=== PATIENT | female | born 1950 | race Caucasian/White ===

== ENCOUNTER 2025-04-20 00:05 | Inpatient (IN) | payer OTHER ==
[2025-04-20] MEDS ORDERED: Acetaminophen 325 MG TAB PO PRN (00:22)
[2025-04-20] MEDS ORDERED: Ondansetron PF 4 MG/2 ML Vial IVP PRN (00:22)
[2025-04-20] MEDS ORDERED: hydrALAZINE 20 MG/ML VIAL SLOW IVP PRN (00:22)
[2025-04-20 04:18] VITALS: BMI 29.9
[2025-04-20 04:30] LABS: #Basophils 0.03 10x3/uL (0.0-0.2); #Eosinophils 0.18 10x3/uL (0.0-0.7); #Monocytes 0.61 10x3/uL (0.11-0.59); #Neutrophils 2.97 10x3/uL (1.40-6.50); %Basophils 0.5 % (0.0-1.0); %Eosinophils 3.0 % (0.0-10.0); %Lymphocytes 37.1 % (21.0-51.0); %Monocytes 10.1 % (0.0-10.0); %Neutrophils 49.1 % (42.0-75.0); Hematocrit 36.1 % (36.0-47.0); Hemoglobin 11.0 g/dL (12.0-16.0); Mean Corpuscular Hemoglobin 26.9 pg (27.0-31.0); Mean Corpuscular Volume 88.3 fL (78.0-98.0); Platelet Count 240 10x3/uL (130-400); Red Blood Cell (RBC) Count 4.09 mill/uL (4.20-5.40); White Blood Cell (WBC) Count 6.04 10x3/uL (4.8-10.8)
[2025-04-20 04:46] LABS: Anion Gap 14 mmol/L (10-20); BUN (Urea Nitrogen) 20 mg/dL (9.8-20.1); Calc. Creatinine Clearance 54 mL/min (70-130); Calcium 9.2 mg/dL (7.8-10.44); Carbon Dioxide 22 mmol/L (23-31); Cardiac Risk 5.4 (Less than 4.5); Chloride 109 mmol/L (98-107); Cholesterol 178 mg/dl (< 200 Desired); Glucose 98 mg/dL (83-110); HDL Cholesterol 33 mg/dL (>60 Neg Risk); LDL Cholesterol, Calculated 115 mg/dL; Potassium 4.0 mmol/L (3.5-5.1); Sodium 141 mmol/L (136-145); Triglycerides 151 mg/dL (Less than 150)
[2025-04-20] MEDS: Pantoprazole 40 MG DR.TAB PO SCH (08:19)
[2025-04-20] MEDS: Aspirin 81 mg Enteric Coated Tablet PO SCH (08:19)
[2025-04-20] MEDS: Rosuvastatin 20 MG TAB PO SCH (21:54)
[2025-04-21 04:35] LABS: #Basophils 0.03 10x3/uL (0.0-0.2); #Eosinophils 0.19 10x3/uL (0.0-0.7); #Monocytes 0.63 10x3/uL (0.11-0.59); #Neutrophils 2.91 10x3/uL (1.40-6.50); %Basophils 0.5 % (0.0-1.0); %Eosinophils 3.2 % (0.0-10.0); %Lymphocytes 35.9 % (21.0-51.0); %Monocytes 10.7 % (0.0-10.0); %Neutrophils 49.5 % (42.0-75.0); Hematocrit 36.1 % (36.0-47.0); Hemoglobin 11.2 g/dL (12.0-16.0); Mean Corpuscular Hemoglobin 27.5 pg (27.0-31.0); Mean Corpuscular Volume 88.5 fL (78.0-98.0); Platelet Count 229 10x3/uL (130-400); Red Blood Cell (RBC) Count 4.08 mill/uL (4.20-5.40); White Blood Cell (WBC) Count 5.88 10x3/uL (4.8-10.8)
[2025-04-21 04:53] LABS: Anion Gap 13 mmol/L (10-20); BUN (Urea Nitrogen) 20 mg/dL (9.8-20.1); Calc. Creatinine Clearance 54 mL/min (70-130); Calcium 9.6 mg/dL (7.8-10.44); Carbon Dioxide 25 mmol/L (23-31); Chloride 109 mmol/L (98-107); Glucose 125 mg/dL (83-110); Potassium 4.0 mmol/L (3.5-5.1); Sodium 143 mmol/L (136-145)
[2025-04-21 16:18] VITALS: BP 180/73; TEMP 98.1
[2025-04-23] MEDS ORDERED: FLU (Fluad Triv) 25-26 (65UP)PF 45 MCG/0.5 ML Syringe IM ONE (09:00)
[2025-04-23] MEDS ORDERED: PNEUMOC 20-VAL CONJ-DIP CRM/PF 0.5 ML SYRINGE IM ONE (09:00)
== END 2025-04-21 19:40 | disposition home or self-care (01) | DRG 65 ==
LOC: INTOOBSV 00:05 → 2SE 00:05 → OBSVTOIN 15:02
PROVIDERS: ADMIT Internal Medicine; ATTEND Internal Medicine
DX: I63.9 Cerebral infarction, unspecified (principal); G81.91 Hemiplegia, unspecified affecting right dominant side; I10 Essential (primary) hypertension; E78.5 Hyperlipidemia, unspecified; E03.9 Hypothyroidism, unspecified; Z98.890 Other specified postprocedural states; F32.A Depression, unspecified; M81.0 Age-related osteoporosis without current pathological fracture; Z87.891 Personal history of nicotine dependence; Z79.899 Other long term (current) drug therapy; R73.03 Prediabetes; R27.0 Ataxia, unspecified; Z88.5 Allergy status to narcotic agent; R29.701 NIHSS score 1; Z79.890 Hormone replacement therapy; Z79.82 Long term (current) use of aspirin
CPT/HCPCS: 36415; 70551; 80048; 80061; 83036; 84443; 85025; 93306; 93880; G0378